=== PATIENT | female | born 2000 | race Caucasian/White ===

== ENCOUNTER 2020-01-24 16:50 | Inpatient (IN) | payer OTHER ==
[~2020-01-24] VITALS: Ht 160 cm; Wt 72.7 kg
[2020-01-24] MEDS ORDERED: LORazepam 2MG/ML-1ML VIAL IV ONE (18:45)
[2020-01-24] MEDS ORDERED: SODIUM CHLORIDE 0.9% 1,000 ML IV ONE ×2 (20:15→23:45)
[2020-01-24] MEDS ORDERED: IOHEXOL 350 MG/ML 100ML IJ ONE (21:16)
[2020-01-24 21:35] LABS: Alcohol, Urine < 3.0 mg/dL (0-10); Amphetamine Screen, Urine NEGATIVE (NEGATIVE); Barbiturate Scree,Urine NEGATIVE (NEGATIVE); Benzodiazephine Screen, Urine NEGATIVE (NEGATIVE); Cannabinoid Screen, Urine NEGATIVE (NEGATIVE); Cocaine Screen, Urine NEGATIVE (NEGATIVE); Opiate Scree,Urine NEGATIVE (NEGATIVE); Phencyclidine Screen, Urine NEGATIVE (NEGATIVE)
[2020-01-24 22:33] LABS: Hemoglobin 12.5 g/dL (12.2-16.2); Mean Corpuscular Hemoglobin 28.4 pg (28.0-32.0)
[2020-01-24 22:36] LABS: Hematocrit 37.7 % (36.0-46.0); Mean Corpuscular Hgb Conc. 33.1 g/dL (32.0-36.0); Mean Corpuscular Volume 85.8 fL (80.0-100.0); Platelet Count (auto) 333 10^3/uL (140-450); Red Cell Distribution Width 14.3 % (11.8-14.3); White Blood Cell 24.2 10^3/uL (4.4-10.8)
[2020-01-24 22:40] LABS: Basophils % (manual) 0 (0.0-2.0); Blast Cells 0; Eosinophils % (manual) 0 (0-7); Metamyelocytes % 0; Myelocytes % 0; Promyelocytes % 0; Reactive Lymphocytes 0
[2020-01-24] MEDS ORDERED: ONDANSETRON HCL 4 MG/2 ML VIAL IV ONE (22:45)
[2020-01-24] MEDS ORDERED: KETOROLAC TROMETH 30 MG/ML 1ML VIAL IV ONE (22:45)
[2020-01-24 22:50] LABS: Albumin 3.4 g/dL (3.4-5.0); Calcium 8.4 mg/dL (8.5-10.1); Potassium 3.3 mmol/L (3.5-5.1)
[2020-01-24 22:55] LABS: BUN/Creatinine Ratio 9.2; Bilirubin, Total 0.7 mg/dL (0.2-1.0); Total Protein 6.3 g/dL (6.4-8.2)
[2020-01-24 23:12] LABS: Band Neutrophils % (manual) 12; Lymphocytes % (manual) 4 (10.0-50.0); Monocytes % (manual) 4 (0-12)
[2020-01-24] MEDS ORDERED: PIPERACILLIN-TAZOB 3.375GM 100 ML IV ONE (23:45)
[2020-01-24 23:50] LABS: Urine Bacteria FEW /hpf (None Seen); Urine Blood Negative /uL (Negative); Urine Mucus FEW (None Seen); Urine Specific Gravity 1.008 (1.001-1.035); Urine WBC 7 /hpf (0 - 5)
[2020-01-25] MEDS ORDERED: NITROGLYCERIN 0.4 MG SL TAB SL PRN (03:15)
[2020-01-25] MEDS ORDERED: MORPHINE SULF INJ 2 MG/ML SYRINGE 1ML IV PRN (03:15)
[2020-01-25] MEDS ORDERED: POTASSIUM CHL 20 Meq TABLET PO ONE (03:15)
[2020-01-25] MEDS ORDERED: ALBUTEROL SULF 2.5 MG/0.5ML(0.5%) NEB SOLN NEB PRN (03:45)
[2020-01-25] MEDS: SODIUM CHLORIDE 0.9% 1,000 ML IV SCH ×2 (04:23→16:53)
[2020-01-25] MEDS: ACETAMINOPHEN 325 MG TAB PO PRN ×3 (04:23→21:17)
[2020-01-25] MEDS: PIPERACILLIN-TAZOB 3.375GM 100 ML IV SCH ×4 (05:44→23:34)
[2020-01-25] MEDS ORDERED: ALBUTEROL SULF HFA 90MCG INH 200DOSE IN SCH (06:00)
[2020-01-25] MEDS ORDERED: ALBUAER3 IN (07:02)
[2020-01-25] MEDS ORDERED: ESCI10TA53 PO (07:02)
[2020-01-25] MEDS ORDERED: BACL10TA PO (07:02)
[2020-01-25] MEDS ORDERED: NORE1DIS TD (07:02)
[2020-01-25 09:00] VITALS: BP 119/66
[2020-01-25] MEDS: FAMOTIDINE (10MG/ML) 2ML VL IV SCH ×2 (09:27→21:47)
[2020-01-25] MEDS ORDERED: VANCOMYCIN PER PHARMACY 0 MG IV SCH (11:00)
[2020-01-25 11:21] LABS: Basophils # (auto) 0 10 ^3/uL (0-0.2); Basophils % (auto) 0.2 % (0.0-2.0); Eosinophils # (auto) 0 10 ^3/uL (0-0.8); Eosinophils % (auto) 0.1 % (0.0-7.0); Hematocrit 36.6 % (36.0-46.0); Hemoglobin 11.9 g/dL (12.2-16.2); Lymphocytes # (auto) 1.9 10 ^3/uL (0.4-5.4); Lymphocytes % (auto) 7.9 % (10.0-50.0); Mean Corpuscular Hemoglobin 28.1 pg (28.0-32.0); Mean Corpuscular Hgb Conc. 32.4 g/dL (32.0-36.0); Mean Corpuscular Volume 86.6 fL (80.0-100.0); Monocytes # (auto) 1.1 10 ^3/uL (0-1.3); Monocytes % (auto) 4.5 % (0.0-12.0); Neutrophils # (auto) 20.7 10 ^3/uL (1.6-8.6); Neutrophils % (auto) 87.3 % (37.0-80.0); Platelet Count (auto) 292 10^3/uL (140-450); Red Blood Cells 4.23 10^6/uL (4.0-5.20); Red Cell Distribution Width 14.4 % (11.8-14.3); White Blood Cell 23.6 10^3/uL (4.4-10.8)
[2020-01-25 11:30] LABS: BUN/Creatinine Ratio 10.8; Calcium 8.3 mg/dL (8.5-10.1); Potassium 3.5 mmol/L (3.5-5.1)
[2020-01-25 13:00] VITALS: BP 110/48
[2020-01-25 13:41] LABS: INR 1.18 (0.9-1.15); Partial Thromboplastin Time 35.3 sec (23.0-31.2)
[2020-01-25] MEDS ORDERED: VANCOMYCIN 1GM/250ML 250 ML IV SCH (15:00)
[2020-01-25 15:06] VITALS: BP 110/48
[2020-01-25] MEDS: traMADol HCL 50 MG TAB PO PRN ×3 (16:00→23:39)
[2020-01-25 16:47] VITALS: BP 90/46
[2020-01-25 20:00] VITALS: BP 116/71
[2020-01-25 22:00] VITALS: BP 116/71
[2020-01-26] MEDS ORDERED: IBUPROFEN 600 MG TAB PO ONE (00:45)
[2020-01-26 04:54] VITALS: BP 98/32
[2020-01-26 05:31] LABS: Basophils # (auto) 0 10 ^3/uL (0-0.2); Basophils % (auto) 0.2 % (0.0-2.0); Eosinophils # (auto) 0.1 10 ^3/uL (0-0.8); Eosinophils % (auto) 0.6 % (0.0-7.0); Hematocrit 33.1 % (36.0-46.0); Hemoglobin 10.7 g/dL (12.2-16.2); Lymphocytes # (auto) 1.9 10 ^3/uL (0.4-5.4); Lymphocytes % (auto) 11.5 % (10.0-50.0); Mean Corpuscular Hemoglobin 28.2 pg (28.0-32.0); Mean Corpuscular Hgb Conc. 32.3 g/dL (32.0-36.0); Mean Corpuscular Volume 87.3 fL (80.0-100.0); Monocytes # (auto) 0.9 10 ^3/uL (0-1.3); Monocytes % (auto) 5.4 % (0.0-12.0); Neutrophils # (auto) 13.7 10 ^3/uL (1.6-8.6); Neutrophils % (auto) 82.3 % (37.0-80.0); Platelet Count (auto) 206 10^3/uL (140-450); Red Blood Cells 3.79 10^6/uL (4.0-5.20); Red Cell Distribution Width 14.8 % (11.8-14.3); White Blood Cell 16.6 10^3/uL (4.4-10.8)
[2020-01-26] MEDS: PIPERACILLIN-TAZOB 3.375GM 100 ML IV SCH ×3 (05:41→17:50)
[2020-01-26] MEDS: traMADol HCL 50 MG TAB PO PRN ×2 (05:46→15:48)
[2020-01-26 05:52] LABS: Albumin 2.7 g/dL (3.4-5.0); Potassium 3.5 mmol/L (3.5-5.1)
[2020-01-26] MEDS: SODIUM CHLORIDE 0.9% 1,000 ML IV SCH ×3 (05:55→21:07)
[2020-01-26 05:57] LABS: BUN/Creatinine Ratio 8.5; Bilirubin, Total 0.6 mg/dL (0.2-1.0); Total Protein 5.4 g/dL (6.4-8.2)
[2020-01-26 08:00] VITALS: BP 103/59
[2020-01-26] MEDS: ONDANSETRON HCL 4 MG/2 ML VIAL IV PRN ×2 (08:06→15:48)
[2020-01-26 09:00] VITALS: BP 103/59
[2020-01-26] MEDS: FAMOTIDINE (10MG/ML) 2ML VL IV SCH ×2 (09:49→21:40)
[2020-01-26 13:00] VITALS: BP 115/76
[2020-01-26 17:11] VITALS: BP 125/80
[2020-01-26] MEDS: ACETAMINOPHEN 325 MG TAB PO PRN (17:50)
[2020-01-26 21:00] VITALS: BP 113/71
[2020-01-27] MEDS: SOD CHL 0.9%/ KCL 20MEQ 1,000 ML IV SCH ×2 (00:02→11:42)
[2020-01-27] MEDS: PIPERACILLIN-TAZOB 3.375GM 100 ML IV SCH ×2 (00:48→06:00)
[2020-01-27] MEDS: traMADol HCL 50 MG TAB PO PRN (02:32)
[2020-01-27] MEDS: ONDANSETRON HCL 4 MG/2 ML VIAL IV PRN ×2 (02:32→23:45)
[2020-01-27 05:00] VITALS: BP 117/63
[2020-01-27 06:28] LABS: Basophils # (auto) 0 10 ^3/uL (0-0.2); Basophils % (auto) 0.5 % (0.0-2.0); Eosinophils # (auto) 0 10 ^3/uL (0-0.8); Eosinophils % (auto) 0.3 % (0.0-7.0); Hemoglobin 10.8 g/dL (12.2-16.2); Lymphocytes # (auto) 1.1 10 ^3/uL (0.4-5.4); Lymphocytes % (auto) 10.4 % (10.0-50.0); Mean Corpuscular Hgb Conc. 33.7 g/dL (32.0-36.0); Mean Corpuscular Volume 86.1 fL (80.0-100.0); Monocytes # (auto) 0.9 10 ^3/uL (0-1.3); Monocytes % (auto) 8.1 % (0.0-12.0); Neutrophils # (auto) 8.5 10 ^3/uL (1.6-8.6); Neutrophils % (auto) 80.7 % (37.0-80.0); Platelet Count (auto) 219 10^3/uL (140-450); Red Blood Cells 3.72 10^6/uL (4.0-5.20); Red Cell Distribution Width 14.2 % (11.8-14.3); White Blood Cell 10.5 10^3/uL (4.4-10.8)
[2020-01-27 06:30] LABS: Potassium 3.3 mmol/L (3.5-5.1)
[2020-01-27 06:35] LABS: BUN/Creatinine Ratio 6.6; Calcium 7.8 mg/dL (8.5-10.1)
[2020-01-27] MEDS ORDERED: HYDROcodone-ACET 5/325MG TAB PO PRN (06:45)
[2020-01-27] MEDS: SODIUM CHLORIDE 0.9% 1,000 ML IV SCH (06:55)
[2020-01-27 08:00] VITALS: BP 129/81
[2020-01-27 09:00] VITALS: BP 129/81
[2020-01-27] MEDS: FAMOTIDINE (10MG/ML) 2ML VL IV SCH ×2 (09:05→22:00)
[2020-01-27] MEDS ORDERED: IBUPROFEN 400 MG TAB PO PRN (09:45)
[2020-01-27] MEDS ORDERED: LIDOCAINE 5% TOPICAL PATCH TOP ONE (10:15)
[2020-01-27] MEDS ORDERED: IOHEXOL 300 MG/ML 100ML BOTTLE IJ ONE (10:44)
[2020-01-27] MEDS: levoFLOXacin 500MG 100 ML IV SCH (11:57)
[2020-01-27 13:00] VITALS: BP 147/83
[2020-01-27] MEDS: KETOROLAC TROMETH 30 MG/ML 1ML VIAL IV PRN ×2 (15:06→22:45)
[2020-01-27 17:14] VITALS: BP 123/81
[2020-01-27 22:00] VITALS: BP 132/89
[2020-01-28] MEDS: ACETAMINOPHEN 325 MG TAB PO PRN ×4 (00:21→23:31)
[2020-01-28 05:00] VITALS: BP 110/55
[2020-01-28 06:19] LABS: Basophils # (auto) 0 10 ^3/uL (0-0.2); Basophils % (auto) 0.7 % (0.0-2.0); Eosinophils # (auto) 0.1 10 ^3/uL (0-0.8); Eosinophils % (auto) 1.2 % (0.0-7.0); Hematocrit 29.8 % (36.0-46.0); Hemoglobin 10.1 g/dL (12.2-16.2); Lymphocytes # (auto) 1.5 10 ^3/uL (0.4-5.4); Lymphocytes % (auto) 31.9 % (10.0-50.0); Mean Corpuscular Hgb Conc. 34.1 g/dL (32.0-36.0); Mean Corpuscular Volume 85.1 fL (80.0-100.0); Monocytes # (auto) 0.7 10 ^3/uL (0-1.3); Monocytes % (auto) 13.7 % (0.0-12.0); Neutrophils # (auto) 2.5 10 ^3/uL (1.6-8.6); Neutrophils % (auto) 52.5 % (37.0-80.0); Platelet Count (auto) 224 10^3/uL (140-450); Red Cell Distribution Width 14.1 % (11.8-14.3); White Blood Cell 4.8 10^3/uL (4.4-10.8)
[2020-01-28 06:35] LABS: Albumin 2.5 g/dL (3.4-5.0); Calcium 8.2 mg/dL (8.5-10.1); Potassium 3.3 mmol/L (3.5-5.1)
[2020-01-28 06:40] LABS: BUN/Creatinine Ratio 6.1; Bilirubin, Total 0.3 mg/dL (0.2-1.0); Total Protein 5.5 g/dL (6.4-8.2)
[2020-01-28 09:00] VITALS: BP 132/73
[2020-01-28] MEDS: LIDOCAINE 5% TOPICAL PATCH TOP SCH (10:00)
[2020-01-28] MEDS ORDERED: POTASSIUM EFFERVESENT TAB 25 MEQ PO ONE (11:45)
[2020-01-28] MEDS: FAMOTIDINE (10MG/ML) 2ML VL IV SCH ×2 (12:16→21:44)
[2020-01-28] MEDS: levoFLOXacin 500MG 100 ML IV SCH (12:16)
[2020-01-28] MEDS: SOD CHL 0.9%/ KCL 20MEQ 1,000 ML IV SCH (12:25)
[2020-01-28] MEDS: Ensure HIGH Protein Chocolate 8oz Bottle PO SCH ×2 (12:46→18:08)
[2020-01-28 13:00] VITALS: BP 142/69
[2020-01-28 13:34] VITALS: BP 140/69
[2020-01-28 17:00] VITALS: BP 136/75
[2020-01-28 22:00] VITALS: BP 151/91
[2020-01-29] MEDS ORDERED: LORATADINE 10 MG TAB PO ONE (00:30)
[2020-01-29] MEDS: SOD CHL 0.9%/ KCL 20MEQ 1,000 ML IV SCH ×2 (02:05→15:05)
[2020-01-29 05:30] VITALS: BP 123/84
[2020-01-29 06:56] LABS: Basophils # (auto) 0 10 ^3/uL (0-0.2); Basophils % (auto) 0.9 % (0.0-2.0); Eosinophils # (auto) 0.1 10 ^3/uL (0-0.8); Eosinophils % (auto) 2.1 % (0.0-7.0); Hematocrit 32.4 % (36.0-46.0); Hemoglobin 10.9 g/dL (12.2-16.2); Lymphocytes # (auto) 1.6 10 ^3/uL (0.4-5.4); Lymphocytes % (auto) 36.5 % (10.0-50.0); Mean Corpuscular Hemoglobin 28.7 pg (28.0-32.0); Mean Corpuscular Hgb Conc. 33.6 g/dL (32.0-36.0); Mean Corpuscular Volume 85.5 fL (80.0-100.0); Monocytes # (auto) 0.8 10 ^3/uL (0-1.3); Monocytes % (auto) 16.9 % (0.0-12.0); Neutrophils % (auto) 43.6 % (37.0-80.0); Platelet Count (auto) 283 10^3/uL (140-450); Red Blood Cells 3.78 10^6/uL (4.0-5.20); Red Cell Distribution Width 14.1 % (11.8-14.3); White Blood Cell 4.5 10^3/uL (4.4-10.8)
[2020-01-29 07:10] LABS: Calcium 8.1 mg/dL (8.5-10.1); Potassium 3.5 mmol/L (3.5-5.1)
[2020-01-29 07:12] LABS: BUN/Creatinine Ratio 10.9
[2020-01-29 09:00] VITALS: BP 131/86
[2020-01-29] MEDS: levoFLOXacin 500MG 100 ML IV SCH (09:09)
[2020-01-29] MEDS: LIDOCAINE 5% TOPICAL PATCH TOP SCH (09:09)
[2020-01-29] MEDS: Ensure HIGH Protein Chocolate 8oz Bottle PO SCH ×2 (09:09→13:01)
[2020-01-29] MEDS: FAMOTIDINE (10MG/ML) 2ML VL IV SCH (09:09)
[2020-01-29 13:00] VITALS: BP 133/79
[2020-01-29 17:50] VITALS: BP 136/79
== END 2020-01-29 17:40 | disposition home or self-care (01) | DRG 720 ==
LOC: ER 16:50 → TELE 16:51 → TELE-CENTR 01-25 05:20 → CENTRAL 01-27 14:00
PROVIDERS: ADMIT Nurse Practitioner Family; ATTEND Internal Medicine
DX: A41.51 Sepsis due to Escherichia coli [E. coli] (principal); E87.6 Hypokalemia; M54.2 Cervicalgia; H53.149 Visual discomfort, unspecified; J45.909 Unspecified asthma, uncomplicated; E44.0 Moderate protein-calorie malnutrition; E87.1 Hypo-osmolality and hyponatremia; E88.09 Other disorders of plasma-protein metabolism, not elsewhere classified; N10 Acute pyelonephritis; Z20.828 Contact with and (suspected) exposure to other viral communicable diseases; Z83.3 Family history of diabetes mellitus; Z87.891 Personal history of nicotine dependence; Z68.28 Body mass index [BMI] 28.0-28.9, adult
CPT/HCPCS: 36415; 36600; 70450; 71045; 71275; 72125; 74177; 80048; 80053; 80307; 81001; 81025; 82805; 83036; 83605; 84443; 85007; 85025; 85027; 85379; 85610; 85730; 86141; 87040; 87077; 87086; 87088; 87186; 87426; 93005; 99291; G0378; J1885; J1956; J2405; J2543; J3490

== ENCOUNTER 2021-01-21 16:34 | Emergency (ER) | payer OTHER ==
[~2021-01-21] VITALS: Ht 160 cm; Wt 60.8 kg
[~2021-01-21 16:34] MED LIST: ALBUAER3 IN; BACL10TA PO; ESCI-28 PO; NORE1DIS TD
[2021-01-21 20:00] LABS: Urine Bacteria NONE SEEN /hpf (None Seen); Urine Blood Negative /uL (Negative); Urine Mucus FEW (None Seen); Urine Specific Gravity 1.019 (1.001-1.035); Urine WBC 1 /hpf (0 - 5)
[2021-01-21] MEDS ORDERED: KETOROLAC TROMETH 30 MG/ML 1ML VIAL IM ONE (20:00)
[2021-01-21] MEDS ORDERED: cefTRIAXone W LIDOCAINE 1 GM IM IM ONE (20:00)
[2021-01-21] MEDS ORDERED: ONDANSETRON ODT 4 MG TAB PO ONE (20:00)
[2021-01-21] MEDS ORDERED: cefTRIAXone SOD 1,000 MG VL IM ONE (21:45)
[2021-01-21 22:17] LABS: Basophils # (auto) 0.1 10 ^3/uL (0-0.2); Basophils % (auto) 1.2 % (0.0-2.0); Eosinophils # (auto) 0.1 10 ^3/uL (0-0.8); Eosinophils % (auto) 2.1 % (0.0-7.0); Hematocrit 39.1 % (36.0-46.0); Hemoglobin 12.9 g/dL (12.2-16.2); Lymphocytes # (auto) 2.1 10 ^3/uL (0.4-5.4); Lymphocytes % (auto) 29.4 % (10.0-50.0); Mean Corpuscular Hemoglobin 29.4 pg (28.0-32.0); Mean Corpuscular Hgb Conc. 32.9 g/dL (32.0-36.0); Mean Corpuscular Volume 89.2 fL (80.0-100.0); Monocytes # (auto) 0.4 10 ^3/uL (0-1.3); Monocytes % (auto) 5.1 % (0.0-12.0); Neutrophils # (auto) 4.4 10 ^3/uL (1.6-8.6); Neutrophils % (auto) 62.2 % (37.0-80.0); Nucleated Red Blood Cells % 0.1 %; Red Blood Cells 4.38 10^6/uL (4.0-5.20); Red Cell Distribution Width 13.6 % (11.8-14.3); White Blood Cell 7.1 10^3/uL (4.4-10.8)
[2021-01-21 22:35] LABS: Albumin 3.7 g/dL (3.4-5.0); BUN/Creatinine Ratio 9.7; Calcium 8.6 mg/dL (8.5-10.1); Potassium 3.7 mmol/L (3.5-5.1)
[2021-01-21 22:38] LABS: Bilirubin, Total 0.4 mg/dL (0.2-1.0); Total Protein 6.9 g/dL (6.4-8.2)
[2021-01-21 23:07] VITALS: BP 113/84
== END 2021-01-21 23:21 | disposition home or self-care (01) ==
LOC: ER 16:34
DX: N20.0 Calculus of kidney (principal); R10.30 Lower abdominal pain, unspecified; F17.210 Nicotine dependence, cigarettes, uncomplicated; Z87.440 Personal history of urinary (tract) infections; Z79.899 Other long term (current) drug therapy
CPT/HCPCS: 36415; 74176; 80053; 81001; 81025; 85025; 87086; 96372; 99284; J0696; J1885; Q0162